=== PATIENT | male | born 1950 | race American Indian/Alaskan Native ===

== ENCOUNTER 2018-03-02 14:28 | Inpatient (IN) | payer MEDICARE ==
[2018-03-02 15:18] LABS: Basophils # (Auto) 0.1 K/mm3 (0.0-0.1); Basophils % (Auto) 0.9 % (0.0-1.8); Eosinophils % (Auto) 0.6 % (0.0-4.3); Hematocrit 36.5 % (35.5-45.6); Hemoglobin 12.3 gm/dl (11.8-15.2); Lymphocytes # (Auto) 1.7 K/mm3 (1.2-5.4); Lymphocytes % (Auto) 19.8 % (13.4-35.0); Mean Corpuscular HGB Conc 34 % (32-34); Mean Corpuscular Volume 80 fl (84-94); Monocytes # (Auto) 0.3 K/mm3 (0.0-0.8); Monocytes % (Auto) 3.5 % (0.0-7.3); Platelet Count 268 K/mm3 (140-440); Red Blood Count 4.59 M/mm3 (3.65-5.03); Red Cell Distribution Width 18.9 % (13.2-15.2)
--- NOTE | 2018-03-02 15:28 | XRay Report ---
FINAL REPORT EXAM: XR CHEST 1V AP HISTORY: Chest Pain TECHNIQUE: Chest, AP PRIORS: None. FINDINGS: There is mild cardiomegaly. Pulmonary vasculature is not congested. The lungs are clear. There are no pleural effusion seen. There is no evidence of pneumothorax. IMPRESSION: There is no acute abnormality identified.
[2018-03-02] MEDS ORDERED: SUBLIMAZE IV ONE ×3 (15:32→18:01)
[2018-03-02 15:33] LABS: Alanine Aminotransferase 15 units/L (7-56); Albumin 4.4 g/dL (3.9-5); BUN/Creatinine Ratio 13; Blood Urea Nitrogen 15 mg/dL (9-20); Calcium 9.9 mg/dL (8.4-10.2); Hemolysis Index 10
[2018-03-02] MEDS ORDERED: NACL 0.9% 250ML 250 ML IV ONE (15:33)
[2018-03-02] MEDS ORDERED: NITROSTAT SL PRN (15:33)
[2018-03-02] MEDS ORDERED: APRESOLINE IV ONE (15:34)
--- NOTE | 2018-03-02 15:34 | Emergency Department Report ---
ED General Adult HPI - General Chief complaint: Chest Pain Stated complaint: CHEST PAIN Time Seen by Provider: 03/02/18 15:13 Source: patient, EMS (ems notes not available at time of chart dictation), RN notes reviewed Mode of arrival: Stretcher Limitations: No Limitations - History of Present Illness Initial comments: This is a 67-year-old gentleman who is not known to this provider previously. He does not have a local primary care doctor. His past medical history includes diabetes, hypertension, stroke Presents to the ER with complaints of chest pain and weakness. Chest pain central, left-sided, radiates to the back into the "right kidney." This pain is present for 2 days. It is intermittent. It does not have exacerbating or relieving factors. It was preceded by nausea, vomiting and diarrhea. The patient denies headache, neck pain, has chronic shortness of breath, has no abdominal pain at this time, denies kidney pain at this time, and denies urinary symptoms. He denies hematemesis, bright red blood per rectum, and he denies D VT, pulmonary embolus risk factors. -: Gradual Location: chest Radiation: back, flank Consistency: intermittent Improves with: none Worsens with: none Associated Symptoms: chest pain, loss of appetite, malaise, nausea/vomiting, weakness. denies: confusion, cough, diaphoresis, fever/chills, headaches, rash, seizure, shortness of breath, syncope - Related Data Allergies Allergy/AdvReac Type Severity Reaction Status Date / Time No Known Allergies Allergy Unverified 03/02/18 15:06 ED Review of Systems ROS: Stated complaint: CHEST PAIN Other details as noted in HPI Constitutional: malaise. denies: fever Eyes: denies: eye discharge ENT: denies: epistaxis Respiratory: denies: cough Cardiovascular: chest pain Gastrointestinal: abdominal pain Genitourinary: denies: dysuria Musculoskeletal: back pain Skin: denies: lesions Neurological: weakness Psychiatric: anxiety ED Past Medical Hx - Past Medical History Previous Medical History?: Yes Hx Hypertension: Yes Hx CVA: Yes Hx Diabetes: Yes Hx Psychiatric Treatment: Yes (PTSD) - Social History Smoking Status: Former Smoker Substance Use Type: None ED Physical Exam - General Limitations: No Limitations General appearance: alert, in distress, obese - Head Head exam: Present: atraumatic, normocephalic - Eye Eye exam: Present: normal appearance, EOMI. Absent: nystagmus - ENT ENT exam: Present: normal exam, normal orophraynx, mucous membranes moist, normal external ear exam - Neck Neck exam: Present: normal inspection, full ROM. Absent: tenderness, meningismus - Respiratory Respiratory exam: Present: normal lung sounds bilaterally. Absent: respiratory distress - Cardiovascular Cardiovascular Exam: Present: regular rate, normal rhythm, normal heart sounds. Absent: bradycardia, tachycardia, irregular rhythm, systolic murmur, diastolic murmur, rubs, gallop - GI/Abdominal GI/Abdominal exam: Present: soft, other (superficial anterior abdominal wall ecchymosis noted, consistent with patient's history of self injecting abdominal wall insulin). Absent: distended, tenderness, guarding, rebound, rigid, pulsatile mass - Rectal Rectal exam: Present: deferred - Extremities Exam Extremities exam: Present: normal inspection, full ROM, pedal edema, other (2+ pulses noted in the bilateral upper, lower extremities. Compartments soft. No long bony tenderness. The pelvis is stable.). Absent: calf tenderness - Back Exam Back exam: Present: normal inspection, full ROM. Absent: tenderness, CVA tenderness (R), paraspinal tenderness, vertebral tenderness - Neurological Exam Neurological exam: Present: alert, other (Extraocular movements intact. Tongue midline. No facial droop. Facial sensation intact to light touch in the V1, V2, V3 distribution bilaterally. 5 and 5 strength in 4 extremities.. Sensation is intact to light touch in 4 extremities.). Absent: motor sensory deficit - Psychiatric Psychiatric exam: Present: anxious - Skin Skin exam: Present: warm, dry, intact, normal color. Absent: rash ED Course Vital Signs 03/02/18 03/02/18 03/02/18 14:35 14:46 15:00 Temperature Pulse Rate 84 80 77 Respiratory 16 10 L 11 L Rate Blood Pressure 177/111 177/111 173/104 O2 Sat by Pulse 100 100 Oximetry 03/02/18 03/02/18 03/02/18 15:01 15:15 15:30 Temperature 98.8 F Pulse Rate 77 77 75 Respiratory 13 10 L 9 L Rate Blood Pressure 177/111 186/104 186/118 O2 Sat by Pulse 99 99 99 Oximetry 03/02/18 03/02/18 03/02/18 15:45 15:56 15:57 Temperature Pulse Rate 78 92 H 88 Respiratory 11 L Rate Blood Pressure 189/117 189/117 189/117 O2 Sat by Pulse 100 Oximetry 03/02/18 03/02/18 03/02/18 16:00 16:16 16:30 Temperature Pulse Rate 85 85 86 Respiratory 10 L 12 20 Rate Blood Pressure 172/105 168/105 172/105 O2 Sat by Pulse 96 99 100 Oximetry 03/02/18 03/02/18 03/02/18 16:45 17:00 17:16 Temperature Pulse Rate 79 77 70 Respiratory 13 11 L 8 L Rate Blood Pressure 161/97 161/97 176/95 O2 Sat by Pulse 100 100 100 Oximetry 03/02/18 03/02/18 17:59 18:01 Temperature Pulse Rate 73 89 Respiratory 10 L 21 Rate Blood Pressure 143/84 143/84 O2 Sat by Pulse Oximetry - Reevaluation(s) Reevaluation #1: 03/02/18 16:18 Differential diagnosis, including but not limited to: GERD, gastritis, hiatal hernia, pancreatitis, acute coronary syndrome, pulmonary embolus, pneumonia, pneumothorax, aortic disease Assessment and plan: 67-year-old gentleman with chest pain that radiates with a number of vascular risk factors. Patient afebrile, with reassuring vital signs, with the exception of elevated blood pressure. His pain will be treated, elevated blood pressure will be treated, we will obtain screening laboratory studies, CT scan of the chest, abdomen, pelvis, and reassess. Clinically doubt aortic disease, given that patient has equal pulses in the upper, lower extremities, and an essentially unremarkable x-ray of the chest. 03/02/18 16:21 Reevaluation #2: 03/02/18 19:04 CT scan of the chest is negative. CT scan of the abdomen and pelvis is negative for acute disease. Patient is eating food. Hospital physician, Dr. Nicholson, has admitted the patient to the medical service for hypertensive urgency, blood pressure control, and cardiac risk stratification. - EJ/Peripheral Line Neck R Time Out Performed: Yes Indications: multiple IV sites needed Skin Cleansed in Sterile Fashion: Yes Size: 20 Dressing Placed: Tegaderm Patient Tolerated Procedure: well ED Medical Decision Making - Lab Data Result diagrams: 03/02/18 15:02 03/02/18 15:02 Vital Signs 01/02/0603/02/18 03/02/18 15:01 15:56 15:57 Temperature 98.8 F Pulse Rate 77 92 H 88 Respiratory 13 Rate Blood Pressure 177/111 189/117 189/117 O2 Sat by Pulse 99 Oximetry Lab Results 03/02/18 03/02/18 03/02/18 Range/Units 15:02 15:02 15:38 WBC 8.4 (4.5-11.0) K/mm3 RBC 4.59 (3.65-5.03) M/mm3 Hgb 12.3 (11.8-15.2) gm/dl Hct 36.5 (35.5-45.6) % MCV 80 L (84-94) fl MCH 27 L (28-32) pg MCHC 34 (32-34) % RDW 18.9 H (13.2-15.2) % Plt Count 268 (140-440) K/mm3 Lymph % (Auto) 19.8 (13.4-35.0) % [place] % (Auto) 3.5 (0.0-7.3) % Eos % (Auto) 0.6 (0.0-4.3) % Baso % (Auto) 0.9 (0.0-1.8) % Lymph # 1.7 (1.2-5.4) K/mm3 [place] # 0.3 (0.0-0.8) K/mm3 Eos # 0.0 (0.0-0.4) K/mm3 Baso # 0.1 (0.0-0.1) K/mm3 Seg Neutrophils % 75.2 H (40.0-70.0) % Seg Neutrophils # 6.3 (1.8-7.7) K/mm3 Sodium 142 (137-145) mmol/L Potassium 4.9 (3.6-5.0) mmol/L Chloride 103.1 (98-107) mmol/L Carbon Dioxide 24 (22-30) mmol/L Anion Gap 20 mmol/L BUN 15 (9-20) mg/dL Creatinine 1.2 (0.8-1.5) mg/dL Estimated GFR > 60 ml/min BUN/Creatinine Ratio 13 % Glucose 166 H (75-100) mg/dL Calcium 9.9 (8.4-10.2) mg/dL Total Bilirubin 0.30 (0.1-1.2) mg/dL AST 16 (5-40) units/L ALT 15 (7-56) units/L Alkaline Phosphatase 78 (35-129) units/L Troponin T < 0.010 (0.00-0.029) ng/mL Total Protein 7.4 (6.3-8.2) g/dL Albumin 4.4 (3.9-5) g/dL Albumin/Globulin Ratio 1.5 % Lipase 25 (13-60) units/L - EKG Data -: EKG Interpreted by Me EKG shows normal: sinus rhythm Rate: normal - EKG Data When compared to previous EKG there are: previous EKG unavailable 03/02/18 16:23 Sinus, 77 bpm, extreme right axis deviation, poor color progression, abnormal EKG, not consistent with ST elevation myocardial infarction. - Radiology Data Radiology results: report reviewed, image reviewed X-ray the chest is negative for acute disease, cardiomegaly is noted. Critical care attestation.: If time is entered above; I have spent that time in minutes in the direct care of this critically ill patient, excluding procedure time. ED Disposition Clinical Impression: Chest pain, Elevated blood pressure reading Disposition: OP ADMIT IP TO THIS HOSP Is pt being admited?: Yes Does the pt Need Aspirin: Yes Condition: Good Instructions: Chest Pain (ED) Referrals: PRIMARY CARE, [Primary Care Provider] - 3-5 Days
[2018-03-02 18:57] LABS: Bilirubin,Urine NEG (Negative); Blood,Urine NEG (Negative); Color,Urine Yellow (Yellow); Urobilinogen,Urine < 2.0 mg/dL (<2.0); WBC,Urine < 1.0 /HPF (0.0-6.0)
--- NOTE | 2018-03-02 19:00 | Cat Scan Report ---
FINAL REPORT EXAM: CT ANGIO CHEST HISTORY: cp htn TECHNIQUE: CT chest with intravenous contrast CT abdomen and pelvis with intravenous contrast PRIORS: None. FINDINGS: No evidence for mediastinal mass or pathologic lymph node enlargement. Heart great vessels appear unr emarkable. No central pulmonary embolus identified. No pulmonary infiltrate identified. No pleural fluid collection seen. Patient is status post cholecystectomy. Small amount of pneumobilia is likely a post cholecystectomy related finding. The spleen demonstrates normal size and attenuation. No pancreatic abnormalities seen. The kidneys demonstrate symmetric contrast enhancement. No evidence of hydronephrosis. At the upper pole left kidney there is a prominent cyst measuring 5.6 centimeters. At the lower pole there are 2 a djacent cysts measuring 8.2 x 4.5 centimeters in total. At the upper pole the right kidney there is a 1.7 centimeters cyst smaller adjacent hypodensity at th e cortex also likely is cystic. The adrenal glands are unremarkable Abdominal aorta is normal in caliber. There is an IVC filter present. There is a stent within the lef t common iliac vein. There is been a prior vertebroplasty at L1. Note is made of a bone island within the left pelvic iliac wing. No pathologically enlarged lymph nodes are identified. No signs of free fluid or free air No evidence of small bowel dilatation. Colon is nondistended. No pericolonic inflammatory change. Urinary bladder is unremarkable. IMPRESSION: IVC filter Stent in the left common iliac vein Bilateral renal cysts more prominent on the left Other incidental findings as noted above No acute abnormality identified
[2018-03-02] MEDS ORDERED: BABY ASPIRIN PO ONE (19:05)
--- NOTE | 2018-03-02 19:38 | History and Physical Report ---
History of Present Illness Chief complaint: Im hurting, and i just done feel good History of present illness: 67 YO Male with HTN, DM, CVA, PTSD presents to ED for evaluation. Pt states that he has experienced pain in his chest over the past 2 days with worsening symptoms over the same time frame. Pt states that pain is 6/10, localized to the left side of his chest, radiates to his back and into the right kidney, i ntermittent, not worsened with exertion, not relieved with rest, associated with nausea, and multiple episodes of vomiting. Pt denies fever, chills, palpitations, productive cough, BRBPR, skin rash, prolonged travel/immobility, unilateral leg swelling, calf pain, individual/family history of DVT/PE/Blood Clotting Disorders. EMS notified, and upon arrival the patient was found to bi in distress. Pt transported to [facility] for further care and evaluation. Pt seen and evaluated in ED and found to have symptoms consistent with ACS as well as Diastolic CHF. Pt admitted to telemetry. Cardiology consulted in ED. Past History Past Medical History: diabetes, hypertension, hyperlipidemia, other (PTSD) Past Surgical History: Other (IVC Filter, Left Iliac Stent) Social history: single Family history: hypertension Medications and Allergies Allergies Allergy/AdvReac Type Severity Reaction Status Date / Time No Known Allergies Allergy Unverified 03/02/18 15:06 Active Meds: Active Medications Nitroglycerin (Nitrostat) 0.4 mg SL .Q5MIN PRN PRN Reason: Chest Pain Last Admin: 03/02/18 15:56 Dose: 0.4 mg Documented by: Review of Systems Constitutional: no weight loss, no weight gain, no fever, no chills Ears, nose, mouth and throat: no ear pain, no ear discharge, no tinnitis, no decreased hearing, no nose pain Cardiovascular: chest pain, no orthopnea, no palpitations, no paroxysmal nocturnal dyspnea, no claudication, no phlebitis Respiratory: no cough, no cough with sputum, no excessive sputum, no hemoptysis Gastrointestinal: abdominal pain, nausea, vomiting, no diarrhea Genitourinary Male: no hematuria, no flank pain, no discharge Rectal: no pain, no incontinence, no bleeding Musculoskeletal: no neck stiffness, no neck pain, no shooting arm pain, no arm numbness/tingling, no low back pain Integumentary: no rash, no pruritis, no redness, no sores, no wounds Neurological: no paralysis, no weakness, no parathesias, no numbness, no tingling, no seizures Psychiatric: no anxiety, no memory loss, no change in sleep habits, no sleep disturbances, no insomnia, no hypersomnia, no change in appetite Endocrine: no cold intolerance, no heat intolerance, no polyphagia, no excessive thirst, no polyuria Hematologic/Lymphatic: no easy bruising, no easy bleeding, no lymphadenopathy, no lymphedema Allergic/Immunologic: no urticaria, no allergic rhinitis, no wheezing, no persistent infections, no anaphylaxis, no angioedema Exam - Constitutional Vitals: Temp Pulse Resp BP Pulse Ox 98.8 F 89 21 143/84 100 03/02/18 15:01 03/02/18 18:03/02/18 18:03/02/18 18:03/02/18 17:16 General appearance: Present: mild distress - EENT Eyes: Present: PERRL ENT: hearing intact, clear oral mucosa - Neck Neck: Present: supple, normal ROM - Respiratory Respiratory effort: normal Respiratory: bilateral: CTA - Cardiovascular Heart Sounds: Present: S1 & S2. Absent: rub, click - Extremities Extremities: pulses symmetrical, No edema Peripheral Pulses: within normal limits - Abdominal General gastrointestinal: Present: soft, non-tender, non-distended, normal bowel sounds Male genitourinary: Present: normal - Integumentary Integumentary: Present: clear, warm, dry - Musculoskeletal Musculoskeletal: gait normal, strength equal bilaterally - Psychiatric Psychiatric: appropriate mood/affect, intact judgment & insight - Neurologic Neurologic: CNII-XII intact, moves all extremities Results - Labs CBC & Chem 7: 03/02/18 15:02 03/02/18 15:02 Labs: Abnormal lab results 03/02/18 03/02/18 03/02/18 Range/Units 15:02 15:02 18:30 MCV 80 L (84-94) fl MCH 27 L (28-32) pg RDW 18.9 H (13.2-15.2) % Seg Neutrophils % 75.2 H (40.0-70.0) % Glucose 166 H (75-100) mg/dL Urine pH 8.0 H (5.0-7.0) Assessment and Plan - Patient Problems (1) ACS (acute coronary syndrome) Current Visit: Yes Status: Acute Plan to address problem: Admit to telemetry, serial cardiac enzymes, ekg, stress test, morphine, supplemental oxygen, nitro, aspirin, cardiology consulted in ED (2) Diastolic CHF Current Visit: Yes Status: Acute Qualifiers: Heart failure chronicity: acute Qualified Code(s): I50.31 - Acute diastolic (congestive) heart failure Plan to address problem: Admit to telemetry, echo, cardiology consulted in ED, afterload reduction, strict I/O, monitor uop q shift, daily weight, (3) HTN (hypertension) Current Visit: Yes Status: Acute Qualifiers: Hypertension type: essential hypertension Qualified Code(s): I10 - Essential (primary) hypertension Plan to address problem: Monitor bp q shift, supportive care. (4) HLD (hyperlipidemia) Current Visit: Yes Status: Acute Qualifiers: Hyperlipidemia type: mixed hyperlipidemia Qualified Code(s): E78.2 - Mixed hyperlipidemia Plan to address problem: Lipid panel, statin therapy as indicated, (5) Diabetes Current Visit: Yes Status: Acute Plan to address problem: ADA diet, insulin, accu check (6) DVT prophylaxis Current Visit: Yes Status: Acute Plan to address problem: SCD to BLE while in bed. (7) Headache Current Visit: Yes Status: Acute Plan to address problem: CT Head with out contrast,
[2018-03-02] MEDS ORDERED: TYLENOL PO PRN (19:39)
[2018-03-02] MEDS ORDERED: PROVENTIL IH PRN (19:39)
[2018-03-02] MEDS ORDERED: SODIUM CHLORIDE FLUSH SYRINGE 10 ML IV PRN ×2 (19:39)
[2018-03-02] MEDS ORDERED: ZESTRIL PO ONE (19:44)
[2018-03-02] MEDS: MORPHINE IV PRN ×2 (20:05→23:59)
[2018-03-02] MEDS: ZOFRAN IV PRN (20:05)
[2018-03-02 20:36] LABS: Chol/HDL Ratio 3.58 %
[2018-03-02] MEDS: SODIUM CHLORIDE FLUSH SYRINGE 10 ML IV SCH (22:52)
[2018-03-02] MEDS ORDERED: AMBIEN PO ONE (23:00)
[2018-03-03] MEDS: MORPHINE IV PRN ×3 (04:27→12:25)
[2018-03-03] MEDS: HCTZ PO SCH (09:56)
[2018-03-03] MEDS ORDERED: AFLURIA QUAD 2018-2019 SYRINGE IM ONE (10:00)
[2018-03-03] MEDS: SODIUM CHLORIDE FLUSH SYRINGE 10 ML IV SCH ×2 (10:00→22:02)
[2018-03-03] MEDS ORDERED: PNEUMOVAX 23 IM ONE (12:00)
--- NOTE | 2018-03-03 14:11 | Consultation ---
History of Present Illness Consult date: 03/03/18 Consult reason: other History of present illness: 67 YO Male with HTN, DM, CVA, PTSD presented to ED with epigastric and abdominal discomfort which radiates to his back. He reports associated nausea and vomiting but no dyspnea. Symptoms are exacerbated by eating. 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 He was also noted to have iliac stent in place on CT but has no knowledge of this stent. ECG revelas sinus bradycardia, left anterior fascicular block, poor R wave transition. Past History Past Medical History: diabetes, hypertension, hyperlipidemia, other (PTSD) Past Surgical History: Other (IVC Filter, Left Iliac Stent) Social history: single Family history: hypertension Medications and Allergies Allergies Allergy/AdvReac Type Severity Reaction Status Date / Time No Known Allergies Allergy Unverified 03/02/18 15:06 Home Medications Medication Instructions Recorded Confirmed Last Taken Type Amlodipine Besylate [Norvasc] 10 mg PO DAILY 03/02/18 03/02/18 Unknown History Aspirin [Aspir-Low] 81 mg PO DAILY 03/02/18 03/02/18 Unknown History Atorvastatin Calcium [Lipitor] 20 mg PO HS 03/02/18 03/02/18 Unknown History Buspirone HCl [busPIRone] 10 mg PO TID 03/02/18 03/02/18 Unknown History Cholecalciferol (Vitamin D3) 2,000 unit PO DAILY 03/02/18 03/02/18 Unknown History [Vitamin D3] Divalproex ER [DepaKOTE ER] 250 mg PO DAILY 03/02/18 03/02/18 Unknown History Duloxetine HCl [DULoxetine] 60 mg PO DAILY 03/02/18 03/02/18 Unknown History Famotidine [Pepcid] 20 mg PO BID 03/02/18 03/02/18 Unknown History Levothyroxine Sodium [Synthroid] 88 mcg PO DAILY 03/02/18 03/02/18 Unknown History Melatonin [Melatin] 9 mg PO HS 03/02/18 03/02/18 Unknown History Metformin HCl [Metformin HCl ER] 500 mg PO DAILY 03/02/18 03/02/18 Unknown History [place]-3/Dha/Epa/Fish Oil [[place] 3 1 each PO HS 03/02/18 03/02/18 Unknown History 500 Softgel] Ondansetron [Zofran TAB] 4 mg PO Q8HR PRN 03/02/18 03/02/18 Unknown History Pantoprazole Sodium 40 mg PO DAILY 03/02/18 03/02/18 Unknown History Rivaroxaban [Xarelto] 20 mg PO QDAY 03/02/18 03/02/18 Unknown History Zolpidem [Ambien] 10 mg PO QHS 03/03/18 03/03/18 03/02/18 23:45 History Active Meds: Active Medications Acetaminophen (Tylenol) 650 mg PO Q4H PRN PRN Reason: Pain MILD(1-3)/Fever >100.5/GIBBS Albuterol (Proventil) 2.5 mg IH Q4HRT PRN PRN Reason: Shortness Of Breath Hydrochlorothiazide (Hctz) 12.5 mg PO QDAY [facility] Last Admin: 03/03/18 09:56 Dose: 12.5 mg Documented by: Morphine Sulfate (Morphine) 2 mg IV Q4H PRN PRN Reason: Pain, Moderate (4-6) Last Admin: 03/03/18 12:25 Dose: 2 mg Documented by: Nitroglycerin (Nitrostat) 0.4 mg SL .Q5MIN PRN PRN Reason: Chest Pain Last Admin: 03/02/18 15:56 Dose: 0.4 mg Documented by: Ondansetron HCl (Zofran) 4 mg IV Q8H PRN PRN Reason: Nausea And Vomiting Last Admin: 03/02/18 20:05 Dose: 4 mg Documented by: Sodium Chloride (Sodium Chloride Flush Syringe 10 Ml) 10 ml IV BID [facility] Last Admin: 03/03/18 10:00 Dose: 10 ml Documented by: Sodium Chloride (Sodium Chloride Flush Syringe 10 Ml) 10 ml IV PRN PRN PRN Reason: LINE FLUSH Sodium Chloride (Sodium Chloride Flush Syringe 10 Ml) 10 ml IV PRN PRN PRN Reason: LINE FLUSH Review of Systems All systems: negative (per hpi) Physical Examination Vital Signs Pulse Resp BP 84 16 177/111 03/02/18 14:35 03/02/18 14:35 03/02/18 14:35 General appearance: no acute distress Neck: Positive: neck supple Cardiac: Positive: Reg Rate and Rhythm. Negative: Audible Murmur Lungs: Positive: clear to auscultation Abdomen: Positive: Soft, Active Bowel Sounds Extremities: Absent: edema Results 03/02/18 15:02 03/02/18 15:02 Cardiac Enzymes 03/02/18 Range/Units 15:02 AST 16 (5-40) units/L Lipids 03/02/18 Range/Units 19:57 Triglycerides 116 (2-149) mg/dL Cholesterol 122 (50-199) mg/dL HDL Cholesterol 34 L (40-59) mg/dL Cholesterol/HDL Ratio 3.58 % CBC 03/02/18 Range/Units 15:02 WBC 8.4 (4.5-11.0) K/mm3 RBC 4.59 (3.65-5.03) M/mm3 Hgb 12.3 (11.8-15.2) gm/dl Hct 36.5 (35.5-45.6) % Plt Count 268 (140-440) K/mm3 Lymph # 1.7 (1.2-5.4) K/mm3 [place] # 0.3 (0.0-0.8) K/mm3 Eos # 0.0 (0.0-0.4) K/mm3 Baso # 0.1 (0.0-0.1) K/mm3 Comprehensive Metabolic Panel 03/02/18 Range/Units 15:02 Sodium 142 (137-145) mmol/L Potassium 4.9 (3.6-5.0) mmol/L Chloride 103.1 (98-107) mmol/L Carbon Dioxide 24 (22-30) mmol/L BUN 15 (9-20) mg/dL Creatinine 1.2 (0.8-1.5) mg/dL Glucose 166 H (75-100) mg/dL Calcium 9.9 (8.4-10.2) mg/dL AST 16 (5-40) units/L ALT 15 (7-56) units/L Alkaline Phosphatase 78 (35-129) units/L Total Protein 7.4 (6.3-8.2) g/dL Albumin 4.4 (3.9-5) g/dL Assessment and Plan Abdominal pain, nausea, vomiting. Htn DM PE/DVT s/p IVC filter and anticoagulated with Xarelto PAD s/p iliac stent. Recommend: Check echocardiogram Continue ongoing evaluation for abdominal pathology.
[2018-03-03] MEDS ORDERED: NON-FORMULARY (Ondansetron [Zofran Tab] 4 MG) PO PRN (15:00)
--- NOTE | 2018-03-03 15:06 | Progress Note ---
Assessment and Plan Atypical chest pain - obtain 2d echo, consulted cardiology Abdominal pain, nausea, vomiting. 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 Subjective Date of service: 03/03/18 Interval history: patient seen and examined c/o abdominal pain with eating, also neck pain, feet and hand numbness b/l Per RN no episode of N/V, tolerating diet Objective - Exam Narrative Exam: General appearance: no acute distress Neck: Positive: neck supple Cardiac: Positive: Reg Rate and Rhythm. Negative: Audible Murmur Lungs: Positive: clear to auscultation Abdomen: Positive: Soft, Active Bowel Sounds Extremities: Absent: edema Neuro: no focal motor deficit Skin: no rash - Constitutional Vitals: Vital Signs - 12hr 03/03/18 03/03/18 03/03/18 04:27 04:57 08:28 Temperature 98.7 F 98.5 F Pulse Rate 75 76 Respiratory 18 20 12 Rate Blood Pressure 119/84 114/75 O2 Sat by Pulse 98 99 Oximetry 03/03/18 10:00 Temperature Pulse Rate 69 Respiratory Rate Blood Pressure O2 Sat by Pulse Oximetry - Labs CBC & Chem 7: 03/02/18 15:02 03/04/18 05:51 Labs: Abnormal lab results 03/02/18 03/02/18 03/02/18 Range/Units 15:02 15:02 18:30 MCV 80 L (84-94) fl MCH 27 L (28-32) pg RDW 18.9 H (13.2-15.2) % Seg Neutrophils % 75.2 H (40.0-70.0) % D-Dimer (0-234) ng/mlDDU Glucose 166 H (75-100) mg/dL POC Glucose (70-105) HDL Cholesterol (40-59) mg/dL Urine pH 8.0 H (5.0-7.0) 03/02/18 03/02/18 03/02/18 Range/Units 19:57 19:57 22:34 MCV (84-94) fl MCH (28-32) pg RDW (13.2-15.2) % Seg Neutrophils % (40.0-70.0) % D-Dimer 315.18 H (0-234) ng/mlDDU Glucose (75-100) mg/dL POC Glucose 110 H (70-105) HDL Cholesterol 34 L (40-59) mg/dL Urine pH (5.0-7.0) 03/03/18 03/03/18 Range/Units 05:55 10:53 MCV (84-94) fl MCH (28-32) pg RDW (13.2-15.2) % Seg Neutrophils % (40.0-70.0) % D-Dimer (0-234) ng/mlDDU Glucose (75-100) mg/dL POC Glucose 117 H 137 H (70-105) HDL Cholesterol (40-59) mg/dL Urine pH (5.0-7.0)
[2018-03-03] MEDS ORDERED: NON-FORMULARY (Duloxetine Hcl [Duloxetine] 60 MG) PO SCH (15:15)
[2018-03-03] MEDS: HumuLIN R SUB-Q SCH ×2 (15:44→22:02)
[2018-03-03] MEDS: PERCOCET 5/325 PO PRN ×3 (16:35→23:31)
[2018-03-03] MEDS: NORVASC PO SCH ×2 (16:35→17:31)
[2018-03-03] MEDS: XARELTO PO SCH ×2 (16:35→17:31)
[2018-03-03] MEDS: CYMBALTA PO SCH ×2 (16:36→17:31)
[2018-03-03] MEDS: HALFPRIN EC PO SCH ×2 (16:36→17:31)
[2018-03-03] MEDS: PROTONIX PO SCH (17:31)
[2018-03-03] MEDS ORDERED: APRESOLINE IV PRN (19:30)
[2018-03-03] MEDS ORDERED: BUSPIRONE HCL 10 MG PO SCH (20:00)
[2018-03-03] MEDS: BUSPAR PO SCH (20:34)
[2018-03-03] MEDS ORDERED: MELATONIN 9 MG PO SCH (22:00)
[2018-03-03] MEDS: AMBIEN PO SCH (22:02)
[2018-03-04] MEDS: PERCOCET 5/325 PO PRN ×4 (05:27→23:55)
[2018-03-04] MEDS: SYNTHROID PO SCH (05:31)
[2018-03-04] MEDS: HumuLIN R SUB-Q SCH ×4 (06:37→22:11)
[2018-03-04 06:39] LABS: BUN/Creatinine Ratio 13; Blood Urea Nitrogen 14 mg/dL (9-20); Calcium 9.2 mg/dL (8.4-10.2); Hemolysis Index 7
[2018-03-04] MEDS ORDERED: NON-FORMULARY (Cholecalciferol (Vitamin D3) [Vitamin D3] 2,000 UNIT) PO SCH (10:00)
--- NOTE | 2018-03-04 11:00 | Progress Note ---
Addendum entered and electronically signed by SONYA CERRATO MD 03/04/18 12:51: Patient has epigastric and generalized abdominal pain, associated with marked te nderness reproduces his pain. Echocardiogram shows left ventricle systolic ejection fraction 40%, with regional wall motion abnormalities suggestive of underlying coronary artery disease. We will treat coronary artery disease medically, and defer further workup and management of abdominal pain to internal medicine and gastroenterology. Original Note: Assessment and Plan Abdominal pain, nausea, vomiting Htn DM PE/DVT s/p IVC filter anticoagulated with Xarelto PAD s/p iliac stent Recommend: Echocardiogram done today, results are pending. Continue ongoing evaluation for abdominal pathology. Subjective Date of service: 03/04/18 Interval history: Patient reports continued right upper quadrant abdominal pain with nausea. Objective Vital Signs Temp Pulse Resp Resp BP Pulse Ox 03/04/18 08:22 98.6 F 80 18 148/81 98 03/04/18 06:27 18 03/04/18 05:27 18 03/04/18 05:23 98.5 F 87 20 148/90 98 03/04/18 00:31 18 03/03/18 23:53 20 03/03/18 23:31 20 03/03/18 22:56 98.0 F 87 18 141/78 96 03/03/18 22:12 68 165/93 03/03/18 22:00 97 03/03/18 20:45 20 96 03/03/18 19:48 71 03/03/18 19:29 98.5 F 71 18 164/90 96 03/03/18 15:26 98.4 F 70 14 173/91 99 03/03/18 11:50 98.3 F 77 14 146/88 98 - Physical Examination General: No Apparent Distress HEENT: Positive: PERRL Cardiac: Positive: Reg Rate and Rhythm Lungs: Positive: Decreased Breath Sounds Abdomen: Positive: Soft, Active Bowel Sounds Extremities: Absent: edema - Labs and Meds Comprehensive Metabolic Panel 03/04/18 Range/Units 05:51 Sodium 139 (137-145) mmol/L Potassium 3.6 D (3.6-5.0) mmol/L Chloride 103.7 (98-107) mmol/L Carbon Dioxide 23 (22-30) mmol/L BUN 14 (9-20) mg/dL Creatinine 1.1 (0.8-1.5) mg/dL Glucose 140 H (75-100) mg/dL Calcium 9.2 (8.4-10.2) mg/dL
[2018-03-04] MEDS: VITAMIN D3 PO SCH (11:57)
[2018-03-04] MEDS: XARELTO PO SCH (11:57)
[2018-03-04] MEDS: NORVASC PO SCH (11:58)
[2018-03-04] MEDS: HCTZ PO SCH (11:58)
[2018-03-04] MEDS: BUSPAR PO SCH ×3 (11:58→22:04)
[2018-03-04] MEDS: PROTONIX PO SCH (11:58)
[2018-03-04] MEDS: CYMBALTA PO SCH (11:58)
[2018-03-04] MEDS: SODIUM CHLORIDE FLUSH SYRINGE 10 ML IV SCH ×2 (12:02→22:11)
[2018-03-04] MEDS: HALFPRIN EC PO SCH (12:13)
--- NOTE | 2018-03-04 14:41 | Progress Note ---
Assessment and Plan Atypical chest pain, due to CAD - consulted cardiology - Echocardiogram showed ejection fraction 40%, with regional wall motion abnormalities suggestive of underlying coronary artery disease. Planned to treat coronary artery disease medically Abdominal pain, nausea, vomiting. - normal CT, tolerating diet -consult GI if symptom worsens - cont PPI for possible PUD Htn, cont home meds DM, cont SSI PE/DVT s/p IVC filter and anticoagulated with Xarelto PAD s/p iliac stent, cont aspirin/statin - ordered CTA abdomen to assess patency of the stent - pending on IV access Disposition: requesting SNF [facility], [facility] notified Brief history: 67 YO Male with HTN, DM, CVA, PTSD presented to ED with epigastric and abdominal discomfort which radiates to his back. CTA chest/ CT abdomen/pelvis: IVC filter, Stent in the left common iliac vein , Bilateral renal cysts more prominent on the left, No acute abnormality identified. Subjective Date of service: 03/04/18 Interval history: patient seen and examined cont to c/o abdominal pain with eating, also neck pain, feet and hand numbness b/l Per RN no episode of N/V, tolerating diet Objective - Exam Narrative Exam: General appearance: no acute distress Neck: Positive: neck supple Cardiac: Positive: Reg Rate and Rhythm. Negative: Audible Murmur Lungs: Positive: clear to auscultation Abdomen: Positive: Soft, Active Bowel Sounds Extremities: Absent: edema Neuro: no focal motor deficit Skin: no rash - Constitutional Vitals: Vital Signs - 12hr 03/04/18 03/04/18 03/04/18 05:23 05:27 06:27 Temperature 98.5 F Pulse Rate 87 Pulse Rate [ Apical] Respiratory 20 18 18 Rate Respiratory Rate [ Generalized] Blood Pressure 148/90 O2 Sat by Pulse 98 Oximetry 03/04/18 03/04/18 08:22 10:00 Temperature 98.6 F Pulse Rate 80 80 Pulse Rate [ 86 Apical] Respiratory 18 Rate Respiratory 20 Rate [ Generalized] Blood Pressure 148/81 O2 Sat by Pulse 98 Oximetry - Labs CBC & Chem 7: 03/02/18 15:02 03/04/18 05:51 Labs: Abnormal lab results 03/03/18 03/03/18 03/04/18 Range/Units 15:20 20:46 05:37 Glucose (75-100) mg/dL POC Glucose 135 H 147 H 135 H (70-105) 03/04/18 03/04/18 Range/Units 05:51 11:59 Glucose 140 H (75-100) mg/dL POC Glucose 142 H (70-105)
[2018-03-04] MEDS: LOPRESSOR PO SCH ×2 (15:08→22:10)
[2018-03-04] MEDS: AMBIEN PO SCH (22:04)
[2018-03-05] MEDS: LOPRESSOR PO SCH ×4 (03:32→21:54)
[2018-03-05] MEDS: SYNTHROID PO SCH (06:01)
[2018-03-05] MEDS: PERCOCET 5/325 PO PRN ×3 (06:02→17:58)
[2018-03-05] MEDS: NITRO DUR TD SCH (06:05)
[2018-03-05] MEDS: HumuLIN R SUB-Q SCH ×4 (09:27→21:43)
[2018-03-05] MEDS: BUSPAR PO SCH ×3 (09:28→21:41)
[2018-03-05] MEDS: NORVASC PO SCH (11:30)
[2018-03-05] MEDS: HALFPRIN EC PO SCH (11:30)
[2018-03-05] MEDS: CYMBALTA PO SCH (11:30)
[2018-03-05] MEDS: VITAMIN D3 PO SCH (11:30)
[2018-03-05] MEDS: PROTONIX PO SCH (11:30)
[2018-03-05] MEDS: HCTZ PO SCH (11:30)
[2018-03-05] MEDS: XARELTO PO SCH (11:30)
[2018-03-05] MEDS: SODIUM CHLORIDE FLUSH SYRINGE 10 ML IV SCH ×2 (11:31→21:41)
--- NOTE | 2018-03-05 11:31 | Cat Scan Report ---
CT ANGIOGRAM ABDOMEN AND PELVIS History: Abdominal pain. Technique: Helical CT and 1.25 mm intervals following IV contrast. Sagittal and coronal reformatted images. Rotational MIP images. Comparison: No relevant comparison. Findings: The abdominal aorta is normal caliber throughout with less than 20% stenosis. Moderate partially calcified plaques are noted in the distal aorta. No aneurysm or dissection. Moderate calcific plaques are identified in both common iliac arteries. There is less than 30% stenosis. The bilateral internal and external iliac arteries are patent with less than 20% stenosis. The celiac axis, SMA, ALVAREZ and bilateral single renal arteries are widely patent less than 20% stenosis. Mild fatty change is noted throughout the liver. There is trace pneumobilia in the left hepatic lobe. The gallbladder has been removed. The pancreas is normal. The spleen is normal size. A rounded enhancing lesion in the posterior spleen measures 2.6 cm which is incompletely characterized on this exam. This probably represents a splenic hemangioma. Scattered bilateral renal cysts are identified. The largest cyst measures 5 cm in the mid left kidney. The adrenal glands are normal. The bowel loops are within normal limits given no oral contrast was administered. The appendix is not confidently identified. Normal bladder. An IVC filter and left common iliac vein stent are in place. IMPRESSION: Mild atherosclerotic disease in the distal aorta and bilateral common iliac arteries but no hemodynamically significant stenosis is identified in the abdomen or pelvis. Fatty change in the liver. Probable splenic hemangioma. Bilateral renal cysts.
--- NOTE | 2018-03-05 12:01 | Consultation ---
History of Present Illness - Reason for Consult Consult date: 03/05/18 Reason for consult: Mental Health Evaluation Requesting physician: DARYA KRAUSE - Chief Complaint Chief complaint: "[facility]" - History of Present Psychiatric Illness 67 y.o. AA male who presented to the ER for chest pain and generalized weakness. Psychiatry was consulted to see the patient for PTSD. Today the patient is calm and cooperative during the assessment. He stated having a hx of PTSD/depression. He stated being a [place] and [facility]. He stated having nightmares about his experiences in [place]. He stated it can be difficult sleeping sometimes. He stated that he took Prazosin in the past that was effective. He stated that his current medical issues has caused him to be more "depressed" because he want to get better. He denies SI/HI's and AVH's. He denies recreational drug use and alcohol consumptions (etoh). Medications and Allergies Allergies Allergy/AdvReac Type Severity Reaction Status Date / Time No Known Allergies Allergy Unverified 03/02/18 15:06 Home Medications Medication Instructions Recorded Confirmed Last Taken Type Amlodipine Besylate [Norvasc] 10 mg PO DAILY 03/02/18 03/02/18 Unknown History Aspirin [Aspir-Low] 81 mg PO DAILY 03/02/18 03/02/18 Unknown History Atorvastatin Calcium [Lipitor] 20 mg PO HS 03/02/18 03/02/18 Unknown History Buspirone HCl [busPIRone] 10 mg PO TID 03/02/18 03/02/18 Unknown History Cholecalciferol (Vitamin D3) 2,000 unit PO DAILY 03/02/18 03/02/18 Unknown History [Vitamin D3] Divalproex ER [DepaKOTE ER] 250 mg PO DAILY 03/02/18 03/02/18 Unknown History Duloxetine HCl [DULoxetine] 60 mg PO DAILY 03/02/18 03/02/18 Unknown History Famotidine [Pepcid] 20 mg PO BID 03/02/18 03/02/18 Unknown History Levothyroxine Sodium [Synthroid] 88 mcg PO DAILY 03/02/18 03/02/18 Unknown History Melatonin [Melatin] 9 mg PO HS 03/02/18 03/02/18 Unknown History Metformin HCl [Metformin HCl ER] 500 mg PO DAILY 03/02/18 03/02/18 Unknown History [place]-3/Dha/Epa/Fish Oil [[place] 3 1 each PO HS 03/02/18 03/02/18 Unknown History 500 Softgel] Ondansetron [Zofran TAB] 4 mg PO Q8HR PRN 03/02/18 03/02/18 Unknown History Pantoprazole Sodium 40 mg PO DAILY 03/02/18 03/02/18 Unknown History Rivaroxaban [Xarelto] 20 mg PO QDAY 03/02/18 03/02/18 Unknown History Zolpidem [Ambien] 10 mg PO QHS 03/03/18 03/03/18 03/02/18 23:45 History Active Meds: Active Medications Acetaminophen (Tylenol) 650 mg PO Q4H PRN PRN Reason: Pain MILD(1-3)/Fever >100.5/GIBBS Last Admin: 03/04/18 22:11 Dose: 650 mg Documented by: Albuterol (Proventil) 2.5 mg IH Q4HRT PRN PRN Reason: Shortness Of Breath Amlodipine Besylate (Norvasc) 10 mg PO DAILY [facility] Last Admin: 03/05/18 11:30 Dose: 10 mg Documented by: Aspirin (Halfprin Ec) 81 mg PO DAILY [facility] Last Admin: 03/05/18 11:30 Dose: 81 mg Documented by: Atorvastatin Calcium (Lipitor) 20 mg PO [facility] Last Admin: 03/04/18 22:04 Dose: 20 mg Documented by: Buspirone HCl (Buspar) 10 mg PO TID [facility] Last Admin: 03/05/18 09:28 Dose: Not Given Documented by: Cholecalciferol (Vitamin D3) 2,000 unit PO QDAY [facility] Last Admin: 03/05/18 11:30 Dose: 2,000 unit Documented by: Divalproex Sodium (Depakote Er) 250 mg PO DAILY [facility] Last Admin: 03/05/18 11:30 Dose: 250 mg Documented by: Duloxetine HCl (Cymbalta) 60 mg PO QDAY [facility] Last Admin: 03/05/18 11:30 Dose: 60 mg Documented by: Hydralazine HCl (Apresoline) 10 mg IV Q4HR PRN PRN Reason: Hypertension Last Admin: 03/03/18 22:12 Dose: 10 mg Documented by: Hydrochlorothiazide (Hctz) 12.5 mg PO QDAY [facility] Last Admin: 03/05/18 11:30 Dose: 12.5 mg Documented by: Insulin Human Regular (Humulin R) 0 units SUB-Q ACHS [facility]; Protocol Last Admin: 03/05/18 09:27 Dose: Not Given Documented by: Levothyroxine Sodium (Synthroid) 88 mcg PO DAILY@0600 [facility] Last Admin: 03/05/18 06:01 Dose: 88 mcg Documented by: Metoprolol Tartrate (Lopressor) 25 mg PO Q6H [facility] Last Admin: 03/05/18 09:00 Dose: Not Given Documented by: Nitroglycerin (Nitrostat) 0.4 mg SL .Q5MIN PRN PRN Reason: Chest Pain Last Admin: 03/02/18 15:56 Dose: 0.4 mg Documented by: Nitroglycerin (Nitro Dur) 0.4 mg TD QDAY@0600 [facility] Last Admin: 03/05/18 06:05 Dose: Not Given Documented by: Ondansetron HCl (Zofran) 4 mg IV Q8H PRN PRN Reason: Nausea And Vomiting Last Admin: 03/02/18 20:05 Dose: 4 mg Documented by: Oxycodone/Acetaminophen (Percocet 5/325) 1 tab PO Q6H PRN PRN Reason: Pain, Moderate (4-6) Last Admin: 03/03/18 17:31 Dose: 1 tab Documented by: Oxycodone/Acetaminophen (Percocet 5/325) 2 tab PO Q6H PRN PRN Reason: Pain , Severe (7-10) Last Admin: 03/05/18 06:02 Dose: 2 tab Documented by: Pantoprazole Sodium (Protonix) 40 mg PO DAILY [facility] Last Admin: 03/05/18 11:30 Dose: 40 mg Documented by: Rivaroxaban (Xarelto) 20 mg PO QDAY [facility]; Protocol Last Admin: 03/05/18 11:30 Dose: 20 mg Documented by: Sodium Chloride (Sodium Chloride Flush Syringe 10 Ml) 10 ml IV BID [facility] Last Admin: 03/05/18 11:31 Dose: 10 ml Documented by: Sodium Chloride (Sodium Chloride Flush Syringe 10 Ml) 10 ml IV PRN PRN PRN Reason: LINE FLUSH Sodium Chloride (Sodium Chloride Flush Syringe 10 Ml) 10 ml IV PRN PRN PRN Reason: LINE FLUSH Zolpidem Tartrate (Ambien) 10 mg PO QHS [facility] Last Admin: 03/04/18 22:04 Dose: 10 mg Documented by: Past psychiatric history - Past Medical History Past Medical History: diabetes, hypertension, stroke Past Surgical History: No surgical history - past Psychiatric treatment and history psychiatric treatment history: Hx of PTSD/Depression. Denies a fam psy hx. - Social History Social history: lives with family Mental Status Exam - Vital signs Last Vital Signs Temp 98.1 F 03/05/18 07:46 Pulse 53 L 03/05/18 10:00 Resp 16 03/05/18 07:46 BP 152/89 03/05/18 07:46 Pulse Ox 97 03/05/18 07:46 - Exam Narrative exam: MSE: Appearance: calm, cooperative Behavior: regular eye contact Speech: regular rate and tone Mood: "okay" Affect: congruent to mood Thought Process: logical Thought Content: denies SI/HI's and AVH's Motor Activity: sitting up in bed Cognition: A/O x 3 Insight: appropriate Judgment: appropriate Results Result Diagrams: 03/02/18 15:02 03/04/18 05:51 Abnormal lab results 03/04/18 03/04/18 03/04/18 Range/Units 11:59 17:07 21:23 POC Glucose 142 H 132 H 141 H (70-105) 03/05/18 Range/Units 06:13 POC Glucose 123 H (70-105) All other labs normal. Assessment and Plan Assessment and plan: Impression: Hx of PTSD/Depression. Today the patient is calm and cooperative during the assessment. Recommendation/Plan: Continue home medications (Cymbalta, Depakote, and Buspar). Start Prazosin 1 mg PO HS for PTSd symptoms. Discussed possible suicidality/medication induced yvonne with the patient reference Cymbalta. Monitor the patient for hypotension. Will follow up with the patient in 24 hours. [facility] for [facility]. Dispo: [facility] for [facility]. Staffed with Dr Woodall.
--- NOTE | 2018-03-05 14:27 | Progress Note ---
Addendum entered and electronically signed by SONYA CERRATO MD 03/05/18 17:45: Patient presented with atypical, epigastric pain which he states radiates to his chest. A CT scan of the abdomen reported no acute findings. Echocardiogram demonstrated some regional wall motion abnormalities suggestive of underlying coronary disease. Recommendations: We'll proceed with a pharmacologic stress test with thallium for cardiac chest pain assessment. Original Note: Assessment and Plan Abdominal pain, nausea, vomiting Htn DM PE/DVT s/p IVC filter anticoagulated with Xarelto PAD s/p iliac stent Echocardiogram shows left ventricle systolic ejection fraction 40%, with regional wall motion abnormalities suggestive of underlying coronary artery disease. Recommend: Pre-discharge persantine thallium stress test for further cardiac evaluation. Continue medical therapy for underlying coronary artery disease. Subjective Date of service: 03/05/18 Interval history: Patient reports continued right upper quadrant abdominal pain with nausea, no vomiting. Objective Vital Signs Temp Pulse Pulse Resp Resp BP Pulse Ox 03/05/18 10:00 53 L 03/05/18 09:00 52 L 03/05/18 07:46 98.1 F 54 L 16 152/89 97 03/05/18 07:02 17 03/05/18 06:02 18 03/05/18 03:32 58 L 165/90 03/05/18 03:31 97.9 F 59 L 18 165/90 95 03/05/18 00:55 18 03/05/18 00:16 98.0 F 57 L 18 172/90 97 03/04/18 23:55 17 03/04/18 23:11 17 03/04/18 22:11 17 03/04/18 22:10 67 171/96 03/04/18 22:00 70 17 100 03/04/18 20:31 18 03/04/18 20:02 98.0 F 67 20 171/96 95 03/04/18 19:46 67 03/04/18 17:03 98.1 F 65 18 157/89 99 - Physical Examination General: No Apparent Distress HEENT: Positive: PERRL Neck: Positive: trachea midline Cardiac: Positive: Reg Rate and Rhythm Lungs: Positive: Decreased Breath Sounds Neuro: Positive: Grossly Intact Abdomen: Positive: Soft Extremities: Absent: edema
--- NOTE | 2018-03-05 18:46 | Progress Note ---
Assessment and Plan Assessment and plan: --h/o PTSD/anxiery abd depression -psych following, continue current medications --Atypical chest pain, due to CAD Cardiology evaluation and recommendations noted ECHO,EF 60%, regional wall motion abnormalities , possible underlying ischemia Possible stress test tomorrow --Abdominal pain, nausea, vomiting. Mild improvement CT abdomen and pelvis negative, tolerating diet cont PPI for possible PUD,GI evaluation is needed --Htn, cont home meds --DM, cont SSI --PE/DVT s/p IVC filter and anticoagulated with Xarelto --PAD s/p iliac stent, cont aspirin/statin ordered CTA abdomen to assess patency of the stent - pending on IV access Disposition: Possible SNF placement Plan of care is reviewed with the patient If stress test is negative and patient is stable and may be discharged tomorrow History Interval history: Patient seen and examined medical records reviewed Patient feels better, no new complaints CT abdomen and pelvis no acute abnormality noted Vital signs noted Hospitalist Physical - Constitutional Vitals: Temp Pulse Resp BP Pulse Ox 98.1 F 65 18 154/98 96 03/05/18 12:39 03/05/18 12:39 03/05/18 12:39 03/05/18 12:39 03/05/18 12:39 General appearance: Present: no acute distress, well-nourished - EENT Eyes: Present: PERRL, EOM intact - Neck Neck: Present: supple, normal ROM - Respiratory Respiratory effort: normal Respiratory: bilateral: diminished, negative: rales, rhonchi, wheezing - Cardiovascular Rhythm: regular Heart Sounds: Present: S1 & S2 - Extremities Extremities: no ischemia, No edema - Abdominal General gastrointestinal: soft, non-tender, non-distended, normal bowel sounds - Integumentary Integumentary: Present: clear, warm - Psychiatric Psychiatric: appropriate mood/affect, cooperative - Neurologic Neurologic: CNII-XII intact, moves all extremities Results - Labs CBC & Chem 7: 03/02/18 15:02 03/04/18 05:51 Labs: Laboratory Last Values WBC 8.4 K/mm3 (4.5-11.0) 03/02/18 15:02 RBC 4.59 M/mm3 (3.65-5.03) 03/02/18 15:02 Hgb 12.3 gm/dl (11.8-15.2) 03/02/18 15:02 Hct 36.5 % (35.5-45.6) 03/02/18 15:02 MCV 80 fl (84-94) L 03/02/18 15:02 MCH 27 pg (28-32) L 03/02/18 15:02 MCHC 34 % (32-34) 03/02/18 15:02 RDW 18.9 % (13.2-15.2) H 03/02/18 15:02 Plt Count 268 K/mm3 (140-440) 03/02/18 15:02 Lymph % (Auto) 19.8 % (13.4-35.0) 03/02/18 15:02 [place] % (Auto) 3.5 % (0.0-7.3) 03/02/18 15:02 Eos % (Auto) 0.6 % (0.0-4.3) 03/02/18 15:02 Baso % (Auto) 0.9 % (0.0-1.8) 03/02/18 15:02 Lymph # 1.7 K/mm3 (1.2-5.4) 03/02/18 15:02 [place] # 0.3 K/mm3 (0.0-0.8) 03/02/18 15:02 Eos # 0.0 K/mm3 (0.0-0.4) 03/02/18 15:02 Baso # 0.1 K/mm3 (0.0-0.1) 03/02/18 15:02 Seg Neutrophils % 75.2 % (40.0-70.0) H 03/02/18 15:02 Seg Neutrophils # 6.3 K/mm3 (1.8-7.7) 03/02/18 15:02 D-Dimer 315.18 ng/mlDDU (0-234) H 03/02/18 19:57 Sodium 139 mmol/L (137-145) 03/04/18 05:51 Potassium 3.6 mmol/L (3.6-5.0) D 03/04/18 05:51 Chloride 103.7 mmol/L (98-107) 03/04/18 05:51 Carbon Dioxide 23 mmol/L (22-30) 03/04/18 05:51 Anion Gap 16 mmol/L 03/04/18 05:51 BUN 14 mg/dL (9-20) 03/04/18 05:51 Creatinine 1.1 mg/dL (0.8-1.5) 03/04/18 05:51 Estimated GFR > 60 ml/min 03/04/18 05:51 BUN/Creatinine Ratio 13 % 03/04/18 05:51 Glucose 140 mg/dL (75-100) H 03/04/18 05:51 POC Glucose 149 (70-105) H 03/05/18 16:03 Calcium 9.2 mg/dL (8.4-10.2) 03/04/18 05:51 Total Bilirubin 0.30 mg/dL (0.1-1.2) 03/02/18 15:02 AST 16 units/L (5-40) 03/02/18 15:02 ALT 15 units/L (7-56) 03/02/18 15:02 Alkaline Phosphatase 78 units/L (35-129) 03/02/18 15:02 Troponin T < 0.010 ng/mL (0.00-0.029) 03/03/18 03:38 NT-Pro-B Natriuret Pep 207.7 pg/mL (0-900) 03/02/18 19:57 Total Protein 7.4 g/dL (6.3-8.2) 03/02/18 15:02 Albumin 4.4 g/dL (3.9-5) 03/02/18 15:02 Albumin/Globulin Ratio 1.5 % 03/02/18 15:02 Triglycerides 116 mg/dL (2-149) 03/02/18 19:57 Cholesterol 122 mg/dL (50-199) 03/02/18 19:57 LDL Cholesterol Direct 79 mg/dL (50-130) 03/02/18 19:57 HDL Cholesterol 34 mg/dL (40-59) L 03/02/18 19:57 Cholesterol/HDL Ratio 3.58 % 03/02/18 19:57 Amylase 51 units/L (27-131) 03/05/18 13:51 Lipase 26 units/L (13-60) 03/05/18 13:51 Urine Color Yellow (Yellow) 03/02/18 18:30 Urine Turbidity Clear (Clear) 03/02/18 18:30 Urine pH 8.0 (5.0-7.0) H 03/02/18 18:30 Ur Specific [place] 1.023 (1.003-1.030) 03/02/18 18:30 Urine Protein 100 mg/dl mg/dL (Negative) 03/02/18 18:30 Urine Glucose (UA) Neg mg/dL (Negative) 03/02/18 18:30 Urine Ketones Tr mg/dL (Negative) 03/02/18 18:30 Urine Blood Neg (Negative) 03/02/18 18: Urine Nitrite Neg (Negative) 03/02/18 18:30 Urine Bilirubin Neg (Negative) 03/02/18 18:30 Urine Urobilinogen < 2.0 mg/dL (<2.0) 03/02/18 18:30 Ur Leukocyte Esterase Neg (Negative) 03/02/18 18:30 Urine WBC (Auto) < 1.0 /HPF (0.0-6.0) 03/02/18 18:30 Urine RBC (Auto) 1.0 /HPF (0.0-6.0) 03/02/18 18:30
[2018-03-05] MEDS: AMBIEN PO SCH (21:41)
[2018-03-05] MEDS: MINIPRESS PO SCH (21:42)
[2018-03-06] MEDS: PERCOCET 5/325 PO PRN ×5 (00:24→18:06)
[2018-03-06] MEDS: LOPRESSOR PO SCH ×4 (06:14→22:13)
[2018-03-06] MEDS: NITRO DUR TD SCH (06:14)
[2018-03-06] MEDS: SYNTHROID PO SCH (06:15)
[2018-03-06] MEDS: HumuLIN R SUB-Q SCH ×4 (07:30→22:14)
[2018-03-06] MEDS: BUSPAR PO SCH ×3 (08:34→22:05)
--- NOTE | 2018-03-06 09:20 | Progress Note ---
Assessment and Plan Assessment and plan: --Atypical chest pain, due to CAD Cardiology evaluation and recommendations noted ECHO,EF 60%, regional wall motion abnormalities , possible underlying ischemia Possible stress test today --h/o PTSD/anxiery abd depression -psych following, continue current medications --Abdominal pain, nausea, vomiting. Mild improvement CT abdomen and pelvis negative, tolerating diet cont PPI for possible PUD,GI evaluation is needed --Htn, cont home meds --DM, cont SSI --PE/DVT s/p IVC filter and anticoagulated with Xarelto --PAD s/p iliac stent, cont aspirin/statin ordered CTA abdomen to assess patency of the stent - pending on IV access Disposition: Possible SNF placement Plan of care is reviewed with the patient If stress test is negative and patient is stable and may be discharged tomorrow Hospitalist Physical - Constitutional Vitals: Temp Pulse Resp BP Pulse Ox 97.3 F L 60 17 127/76 95 03/06/18 04:55 03/06/18 04:55 03/06/18 07:15 03/06/18 04:55 03/06/18 04:55 General appearance: Present: no acute distress, well-nourished - EENT Eyes: Present: PERRL, EOM intact - Neck Neck: Present: supple, normal ROM - Respiratory Respiratory effort: normal Respiratory: bilateral: diminished, negative: rales, rhonchi, wheezing - Cardiovascular Rhythm: regular Heart Sounds: Present: S1 & S2 - Extremities Extremities: no ischemia - Abdominal General gastrointestinal: soft, non-tender, non-distended, normal bowel sounds - Integumentary Integumentary: Present: clear, warm - Psychiatric Psychiatric: appropriate mood/affect, cooperative - Neurologic Neurologic: CNII-XII intact, moves all extremities Results - Labs CBC & Chem 7: 03/02/18 15:02 03/04/18 05:51 Labs: Laboratory Last Values WBC 8.4 K/mm3 (4.5-11.0) 03/02/18 15:02 RBC 4.59 M/mm3 (3.65-5.03) 03/02/18 15:02 Hgb 12.3 gm/dl (11.8-15.2) 03/02/18 15:02 Hct 36.5 % (35.5-45.6) 03/02/18 15:02 MCV 80 fl (84-94) L 03/02/18 15:02 MCH 27 pg (28-32) L 03/02/18 15:02 MCHC 34 % (32-34) 03/02/18 15:02 RDW 18.9 % (13.2-15.2) H 03/02/18 15:02 Plt Count 268 K/mm3 (140-440) 03/02/18 15:02 Lymph % (Auto) 19.8 % (13.4-35.0) 03/02/18 15:02 [place] % (Auto) 3.5 % (0.0-7.3) 03/02/18 15:02 Eos % (Auto) 0.6 % (0.0-4.3) 03/02/18 15:02 Baso % (Auto) 0.9 % (0.0-1.8) 03/02/18 15:02 Lymph # 1.7 K/mm3 (1.2-5.4) 03/02/18 15:02 [place] # 0.3 K/mm3 (0.0-0.8) 03/02/18 15:02 Eos # 0.0 K/mm3 (0.0-0.4) 03/02/18 15:02 Baso # 0.1 K/mm3 (0.0-0.1) 03/02/18 15:02 Seg Neutrophils % 75.2 % (40.0-70.0) H 03/02/18 15:02 Seg Neutrophils # 6.3 K/mm3 (1.8-7.7) 03/02/18 15:02 D-Dimer 315.18 ng/mlDDU (0-234) H 03/02/18 19:57 Sodium 139 mmol/L (137-145) 03/04/18 05:51 Potassium 3.6 mmol/L (3.6-5.0) D 03/04/18 05:51 Chloride 103.7 mmol/L (98-107) 03/04/18 05:51 Carbon Dioxide 23 mmol/L (22-30) 03/04/18 05:51 Anion Gap 16 mmol/L 03/04/18 05:51 BUN 14 mg/dL (9-20) 03/04/18 05:51 Creatinine 1.1 mg/dL (0.8-1.5) 03/04/18 05:51 Estimated GFR > 60 ml/min 03/04/18 05:51 BUN/Creatinine Ratio 13 % 03/04/18 05:51 Glucose 140 mg/dL (75-100) H 03/04/18 05:51 POC Glucose 219 (70-105) H 03/06/18 06:43 Calcium 9.2 mg/dL (8.4-10.2) 03/04/18 05:51 Total Bilirubin 0.30 mg/dL (0.1-1.2) 03/02/18 15:02 AST 16 units/L (5-40) 03/02/18 15:02 ALT 15 units/L (7-56) 03/02/18 15:02 Alkaline Phosphatase 78 units/L (35-129) 03/02/18 15:02 Troponin T < 0.010 ng/mL (0.00-0.029) 03/03/18 03:38 NT-Pro-B Natriuret Pep 207.7 pg/mL (0-900) 03/02/18 19:57 Total Protein 7.4 g/dL (6.3-8.2) 03/02/18 15:02 Albumin 4.4 g/dL (3.9-5) 03/02/18 15:02 Albumin/Globulin Ratio 1.5 % 03/02/18 15:02 Triglycerides 116 mg/dL (2-149) 03/02/18 19:57 Cholesterol 122 mg/dL (50-199) 03/02/18 19:57 LDL Cholesterol Direct 79 mg/dL (50-130) 03/02/18 19:57 HDL Cholesterol 34 mg/dL (40-59) L 03/02/18 19:57 Cholesterol/HDL Ratio 3.58 % 03/02/18 19:57 Amylase 51 units/L (27-131) 03/05/18 13:51 Lipase 26 units/L (13-60) 03/05/18 13:51 Urine Color Yellow (Yellow) 03/02/18 18:30 Urine Turbidity Clear (Clear) 03/02/18 18:30 Urine pH 8.0 (5.0-7.0) H 03/02/18 18:30 Ur Specific [place] 1.023 (1.003-1.030) 03/02/18 18:30 Urine Protein 100 mg/dl mg/dL (Negative) 03/02/18 18:30 Urine Glucose (UA) Neg mg/dL (Negative) 03/02/18 18: Urine Ketones Tr mg/dL (Negative) 03/02/18 18:30 Urine Blood Neg (Negative) 03/02/18 18:30 Urine Nitrite Neg (Negative) 03/02/18 18: Urine Bilirubin Neg (Negative) 03/02/18 18: Urine Urobilinogen < 2.0 mg/dL (<2.0) 03/02/18 18:30 Ur Leukocyte Esterase Neg (Negative) 03/02/18 18:30 Urine WBC (Auto) < 1.0 /HPF (0.0-6.0) 03/02/18 18:30 Urine RBC (Auto) 1.0 /HPF (0.0-6.0) 03/02/18 18:30
[2018-03-06] MEDS ORDERED: LEXISCAN IV ONE (09:49)
[2018-03-06] MEDS: ZOFRAN IV PRN (10:27)
[2018-03-06] MEDS ORDERED: ZOFRAN ONE (10:28)
[2018-03-06] MEDS: VITAMIN D3 PO SCH (11:40)
[2018-03-06] MEDS: HALFPRIN EC PO SCH (11:40)
[2018-03-06] MEDS: XARELTO PO SCH (11:40)
[2018-03-06] MEDS: CYMBALTA PO SCH (11:41)
[2018-03-06] MEDS: PROTONIX PO SCH (11:41)
[2018-03-06] MEDS: HCTZ PO SCH (11:42)
--- NOTE | 2018-03-06 12:18 | Progress Note ---
Assessment and Plan Abdominal pain, nausea, vomiting Htn DM PE/DVT s/p IVC filter anticoagulated with Xarelto PAD s/p iliac stent Echocardiogram shows left ventricle systolic ejection fraction 40%, with regional wall motion abnormalities suggestive of underlying coronary artery disease. MPI this admission showed no ischemia with a normal LVEF Recommend: No further cardiac work-up is needed Subjective Date of service: 03/06/18 Principal diagnosis: Chest Pain Interval history: Patient underwent a lexiscan stress test today without complications Objective Vital Signs Temp Pulse Pulse Resp Resp BP Pulse Ox 03/06/18 11:44 20 03/06/18 10:15 68 126/73 03/06/18 10:14 71 132/75 03/06/18 10:13 70 131/76 03/06/18 10:12 72 124/73 03/06/18 10:11 78 129/81 03/06/18 10:10 67 135/78 03/06/18 10:01 56 L 142/85 03/06/18 07:15 17 03/06/18 06:15 17 03/06/18 04:55 97.3 F L 60 17 127/76 95 03/06/18 01:24 18 03/06/18 00:24 18 03/06/18 00:13 98.5 F 69 17 113/73 96 03/05/18 22:00 70 18 95 03/05/18 21:54 67 161/94 03/05/18 21:42 67 161/94 03/05/18 20:26 18 03/05/18 20:12 98.0 F 67 17 161/94 96 03/05/18 18:58 18 03/05/18 16:02 98.0 F 63 18 153/93 96 03/05/18 12:39 98.1 F 65 18 154/98 96 - Physical Examination General: No Apparent Distress HEENT: Positive: PERRL Neck: Positive: trachea midline Cardiac: Positive: Reg Rate and Rhythm Lungs: Positive: Normal Exam Neuro: Positive: Grossly Intact Abdomen: Positive: Soft Extremities: Absent: edema
[2018-03-06] MEDS: NORVASC PO SCH (16:28)
[2018-03-06] MEDS: SODIUM CHLORIDE FLUSH SYRINGE 10 ML IV SCH ×2 (16:29→22:14)
--- NOTE | 2018-03-06 20:25 | Treadmill Report ---
INDICATION: Chest pain. ORDERING PHYSICIAN: Ching Verdugo MD FINDINGS: There is no scintigraphic evidence of myocardial ischemia. The left ventricle is normal in size and function. The left ventricular ejection fraction is measured at 64%. There is normal wall motion and wall thickening on gated imaging. CONCLUSION: Normal perfusion scan. JOB# [id number] LILLIE/AKI
[2018-03-06] MEDS: MINIPRESS PO SCH (22:13)
[2018-03-06] MEDS: AMBIEN PO SCH (22:15)
[2018-03-07] MEDS: LOPRESSOR PO SCH ×4 (06:16→22:15)
[2018-03-07] MEDS: SYNTHROID PO SCH (06:16)
[2018-03-07] MEDS: PERCOCET 5/325 PO PRN ×4 (06:16→18:41)
[2018-03-07] MEDS: NITRO DUR TD SCH (06:48)
--- NOTE | 2018-03-07 11:03 | Progress Note ---
Subjective - Reason for Consult Consult date: 03/07/18 Reason for consult: Psychiatry Follow-up - Chief Complaint Chief complaint: "I am depressed" 67 y.o. AA male who presented to the ER for chest pain and generalized weakness. Psychiatry was consulted to see the patient for PTSD. Today the patient is calm and cooperative, but withdrawn during the assessment. He stated that he isn't feeling well "mentally." He stated that he want to kill himself, but denies a suicide plan when asked. He acknowledged a previous suicide attempt by overdosing on Zoloft a year ago. He denies HI's and AVHs'. He denies any side effects of his medications. He denies having nightmares last night. Mental Status Exam - Vital signs Last Vital Signs Temp 97.8 F 03/07/18 09:12 Pulse 59 L 03/07/18 09:12 Resp 16 03/07/18 09:12 BP 108/57 03/07/18 09:12 Pulse Ox 96 03/07/18 09:12 - Exam Narrative exam: MSE: Appearance: calm, cooperative Behavior: regular eye contact Speech: regular rate and tone Mood: "depressed." withdrawn Affect: flat Thought Process: logical Thought Content: denies HI's and AVH's Motor Activity: sitting up in bed Cognition: A/O x 3 Insight: vague Judgment:poor Assessment and Plan Impression: Hx of PTSD/Depression. Today the patient is calm and cooperative during the assessment. The patient endorses SI's. Recommendation/Plan: Initiate 1013 and continue home medications (Cymbalta, Depakote, and Buspar). Also, continue Prazosin 1 mg PO HS for PTSD symptoms. Discussed possible suicidality/medication induced yvonne with the patient reference Cymbalta. Monitor the patient for hypotension. Will follow up with the patient in 24 hours. [facility] ordered for the AM. Dispo: The patient will be assessed daily to determine proper dispo once medically clear. Will staff with Dr Woodall.
[2018-03-07] MEDS: XARELTO PO SCH (11:55)
[2018-03-07] MEDS: PROTONIX PO SCH (11:55)
[2018-03-07] MEDS: NORVASC PO SCH (11:55)
[2018-03-07] MEDS: VITAMIN D3 PO SCH (11:56)
[2018-03-07] MEDS: CYMBALTA PO SCH (11:57)
[2018-03-07] MEDS: SODIUM CHLORIDE FLUSH SYRINGE 10 ML IV SCH ×2 (12:00→22:16)
[2018-03-07] MEDS: BUSPAR PO SCH ×3 (12:01→22:14)
[2018-03-07] MEDS: HumuLIN R SUB-Q SCH ×4 (12:02→22:30)
[2018-03-07] MEDS: HCTZ PO SCH (12:03)
--- NOTE | 2018-03-07 12:05 | Progress Note ---
Addendum entered and electronically signed by SONYA CERRATO MD 03/07/18 17:04: Conservative cardiac medical therapy. Original Note: Assessment and Plan Abdominal pain, nausea, vomiting Htn DM PE/DVT s/p IVC filter anticoagulated with Xarelto PAD s/p iliac stent Echocardiogram shows left ventricle systolic ejection fraction 40%, with regional wall motion abnormalities suggestive of underlying coronary artery disease. No ischemia by MPI this admission Conservative cardiac management. Subjective Date of service: 03/07/18 Principal diagnosis: Chest Pain Interval history: Patient reports continued right upper quadrant abdominal pain with nausea, no vomiting. Objective Vital Signs Temp Pulse Resp Resp BP Pulse Ox 03/07/18 09:12 97.8 F 59 L 16 108/57 96 03/07/18 07:15 17 03/07/18 06:16 18 03/07/18 05:19 98.3 F 55 L 17 112/63 93 03/07/18 01:00 18 03/07/18 00:07 97.6 F 61 17 110/56 95 03/07/18 00:00 18 03/06/18 22:13 63 139/71 03/06/18 22:12 98.0 F 66 17 139/71 97 03/06/18 22:00 17 03/06/18 21:20 97 03/06/18 20:31 18 03/06/18 20:26 61 03/06/18 19:05 18 03/06/18 18:05 20 03/06/18 17:55 97 03/06/18 16:52 98.4 F 74 16 126/80 95 03/06/18 16:28 70 136/74 03/06/18 13:00 64 20 20 03/06/18 12:44 20 03/06/18 12:38 98.0 F 16 03/06/18 12:35 59 L 126/78 96 - Physical Examination General: No Apparent Distress HEENT: Positive: PERRL Neck: Positive: trachea midline Cardiac: Positive: Reg Rate and Rhythm Lungs: Positive: Decreased Breath Sounds Neuro: Positive: Grossly Intact Abdomen: Positive: Soft Extremities: Absent: edema
[2018-03-07] MEDS: HALFPRIN EC PO SCH (12:07)
--- NOTE | 2018-03-07 17:47 | Progress Note ---
Assessment and Plan Assessment and plan: --Depression; suicidal thoughts and ideation Psych is already on the case, placed on suicide watch 1013 status Closely monitor --Atypical chest pain, due to CAD Cardiology evaluation and recommendations noted ECHO,EF 60%, regional wall motion abnormalities , possible underlying ischemia Stress test negative for reversible ischemia --h/o PTSD/anxiery abd depression -psych following, continue current medications --Abdominal pain, nausea, vomiting. Mild improvement CT abdomen and pelvis negative, tolerating diet cont PPI for possible PUD,GI evaluation is needed --Htn, cont home meds --DM, cont SSI --PE/DVT s/p IVC filter and anticoagulated with Xarelto --PAD s/p iliac stent, cont aspirin/statin ordered CTA abdomen to assess patency of the stent - pending on IV access Disposition: Possible SNF placement Plan of care is reviewed with the patient Psychiatric evaluation and recommendations noted Continue 3 status History Interval history: Sincerely and examined medical records reviewed Patient feels better slightly depressed, stress test negative Denies chest pain or shortness of breath Alert awake oriented 3 Vital signs noted Hospitalist Physical - Constitutional Vitals: Temp Pulse Resp BP Pulse Ox 97.9 F 59 L 18 105/51 97 03/07/18 16:36 03/07/18 16:43 03/07/18 16:36 03/07/18 16:36 03/07/18 16:36 General appearance: Present: no acute distress, well-nourished - EENT Eyes: Present: PERRL, EOM intact - Neck Neck: Present: supple, normal ROM - Respiratory Respiratory effort: normal Respiratory: bilateral: diminished, negative: rales, rhonchi, wheezing - Cardiovascular Rhythm: regular Heart Sounds: Present: S1 & S2 - Extremities Extremities: no ischemia, No edema - Abdominal General gastrointestinal: soft, non-tender, non-distended, normal bowel sounds - Integumentary Integumentary: Present: clear, warm - Psychiatric Psychiatric: appropriate mood/affect, cooperative - Neurologic Neurologic: CNII-XII intact, moves all extremities Results - Labs CBC & Chem 7: 03/02/18 15:02 03/04/18 05:51 Labs: Laboratory Last Values WBC 8.4 K/mm3 (4.5-11.0) 03/02/18 15:02 RBC 4.59 M/mm3 (3.65-5.03) 03/02/18 15:02 Hgb 12.3 gm/dl (11.8-15.2) 03/02/18 15:02 Hct 36.5 % (35.5-45.6) 03/02/18 15:02 MCV 80 fl (84-94) L 03/02/18 15:02 MCH 27 pg (28-32) L 03/02/18 15:02 MCHC 34 % (32-34) 03/02/18 15:02 RDW 18.9 % (13.2-15.2) H 03/02/18 15:02 Plt Count 268 K/mm3 (140-440) 03/02/18 15:02 Lymph % (Auto) 19.8 % (13.4-35.0) 03/02/18 15:02 [place] % (Auto) 3.5 % (0.0-7.3) 03/02/18 15:02 Eos % (Auto) 0.6 % (0.0-4.3) 03/02/18 15:02 Baso % (Auto) 0.9 % (0.0-1.8) 03/02/18 15:02 Lymph # 1.7 K/mm3 (1.2-5.4) 03/02/18 15:02 [place] # 0.3 K/mm3 (0.0-0.8) 03/02/18 15:02 Eos # 0.0 K/mm3 (0.0-0.4) 03/02/18 15:02 Baso # 0.1 K/mm3 (0.0-0.1) 03/02/18 15:02 Seg Neutrophils % 75.2 % (40.0-70.0) H 03/02/18 15:02 Seg Neutrophils # 6.3 K/mm3 (1.8-7.7) 03/02/18 15:02 D-Dimer 315.18 ng/mlDDU (0-234) H 03/02/18 19:57 Sodium 139 mmol/L (137-145) 03/04/18 05:51 Potassium 3.6 mmol/L (3.6-5.0) D 03/04/18 05:51 Chloride 103.7 mmol/L (98-107) 03/04/18 05:51 Carbon Dioxide 23 mmol/L (22-30) 03/04/18 05:51 Anion Gap 16 mmol/L 03/04/18 05:51 BUN 14 mg/dL (9-20) 03/04/18 05:51 Creatinine 1.1 mg/dL (0.8-1.5) 03/04/18 05:51 Estimated GFR > 60 ml/min 03/04/18 05:51 BUN/Creatinine Ratio 13 % 03/04/18 05:51 Glucose 140 mg/dL (75-100) H 03/04/18 05:51 POC Glucose 167 (70-105) H 03/07/18 14:07 Calcium 9.2 mg/dL (8.4-10.2) 03/04/18 05:51 Total Bilirubin 0.30 mg/dL (0.1-1.2) 03/02/18 15:02 AST 16 units/L (5-40) 03/02/18 15:02 ALT 15 units/L (7-56) 03/02/18 15:02 Alkaline Phosphatase 78 units/L (35-129) 03/02/18 15:02 Troponin T < 0.010 ng/mL (0.00-0.029) 03/03/18 03:38 NT-Pro-B Natriuret Pep 207.7 pg/mL (0-900) 03/02/18 19:57 Total Protein 7.4 g/dL (6.3-8.2) 03/02/18 15:02 Albumin 4.4 g/dL (3.9-5) 03/02/18 15:02 Albumin/Globulin Ratio 1.5 % 03/02/18 15:02 Triglycerides 116 mg/dL (2-149) 03/02/18 19:57 Cholesterol 122 mg/dL (50-199) 03/02/18 19:57 LDL Cholesterol Direct 79 mg/dL (50-130) 03/02/18 19:57 HDL Cholesterol 34 mg/dL (40-59) L 03/02/18 19:57 Cholesterol/HDL Ratio 3.58 % 03/02/18 19:57 Amylase 51 units/L (27-131) 03/05/18 13:51 Lipase 26 units/L (13-60) 03/05/18 13:51 Urine Color Yellow (Yellow) 03/02/18 18:30 Urine Turbidity Clear (Clear) 03/02/18 18:30 Urine pH 8.0 (5.0-7.0) H 03/02/18 18:30 Ur Specific [place] 1.023 (1.003-1.030) 03/02/18 18:30 Urine Protein 100 mg/dl mg/dL (Negative) 03/02/18 18:30 Urine Glucose (UA) Neg mg/dL (Negative) 03/02/18 18: Urine Ketones Tr mg/dL (Negative) 03/02/18 18:30 Urine Blood Neg (Negative) 03/02/18 18:30 Urine Nitrite Neg (Negative) 03/02/18 18:30 Urine Bilirubin Neg (Negative) 03/02/18 18:30 Urine Urobilinogen < 2.0 mg/dL (<2.0) 03/02/18 18:30 Ur Leukocyte Esterase Neg (Negative) 03/02/18 18:30 Urine WBC (Auto) < 1.0 /HPF (0.0-6.0) 03/02/18 18:30 Urine RBC (Auto) 1.0 /HPF (0.0-6.0) 03/02/18 18:30 Valproic Acid 16.1 ug/mL (50-100) L 03/06/18 19:56
[2018-03-07] MEDS: MINIPRESS PO SCH (22:15)
[2018-03-07] MEDS: AMBIEN PO SCH (22:16)
[2018-03-08] MEDS: LOPRESSOR PO SCH ×4 (03:09→21:44)
[2018-03-08] MEDS: SYNTHROID PO SCH (05:53)
[2018-03-08] MEDS: PERCOCET 5/325 PO PRN ×3 (06:01→21:41)
--- NOTE | 2018-03-08 08:20 | Progress Note ---
Assessment and Plan Assessment and plan: --Depression; suicidal thoughts and ideation Psych is already on the case, placed on suicide watch 1013 status Closely monitor --Atypical chest pain, due to CAD Cardiology evaluation and recommendations noted ECHO,EF 60%, regional wall motion abnormalities , possible underlying ischemia Stress test negative for reversible ischemia --h/o PTSD/anxiery abd depression -psych following, continue current medications --Abdominal pain, nausea, vomiting. Mild improvement CT abdomen and pelvis negative, tolerating diet cont PPI for possible PUD,GI evaluation is needed --Htn, cont home meds --DM, cont SSI --PE/DVT s/p IVC filter and anticoagulated with Xarelto --PAD s/p iliac stent, cont aspirin/statin ordered CTA abdomen to assess patency of the stent - pending on IV access Continue 1013 status Medically stable for discharge and transferred to inpatient psych facility History Interval history: Since seen and examined medical records reviewed Complaints of depression and suicidal ideation Patient is medically stable for discharge Psych planning inpatient psych transfer Patient's alert and awake Not in acute distress, vital signs reviewed Hospitalist Physical - Constitutional Vitals: Temp Pulse Resp BP Pulse Ox 98.4 F 68 18 130/65 93 03/08/18 07:19 03/08/18 07:18 03/08/18 07:18 03/08/18 07:18 03/08/18 07:18 General appearance: Present: no acute distress, well-nourished - EENT Eyes: Present: PERRL, EOM intact - Neck Neck: Present: supple, normal ROM - Respiratory Respiratory effort: normal Respiratory: bilateral: diminished, negative: rales, rhonchi, wheezing - Cardiovascular Rhythm: regular Heart Sounds: Present: S1 & S2 - Extremities Extremities: no ischemia, No edema - Abdominal General gastrointestinal: soft, non-tender, non-distended, normal bowel sounds - Integumentary Integumentary: Present: clear, warm - Psychiatric Psychiatric: appropriate mood/affect, cooperative - Neurologic Neurologic: CNII-XII intact, moves all extremities Results - Labs CBC & Chem 7: 03/02/18 15:02 03/04/18 05:51 Labs: Laboratory Last Values WBC 8.4 K/mm3 (4.5-11.0) 03/02/18 15:02 RBC 4.59 M/mm3 (3.65-5.03) 03/02/18 15:02 Hgb 12.3 gm/dl (11.8-15.2) 03/02/18 15:02 Hct 36.5 % (35.5-45.6) 03/02/18 15:02 MCV 80 fl (84-94) L 03/02/18 15:02 MCH 27 pg (28-32) L 03/02/18 15:02 MCHC 34 % (32-34) 03/02/18 15:02 RDW 18.9 % (13.2-15.2) H 03/02/18 15:02 Plt Count 268 K/mm3 (140-440) 03/02/18 15:02 Lymph % (Auto) 19.8 % (13.4-35.0) 03/02/18 15:02 [place] % (Auto) 3.5 % (0.0-7.3) 03/02/18 15:02 Eos % (Auto) 0.6 % (0.0-4.3) 03/02/18 15:02 Baso % (Auto) 0.9 % (0.0-1.8) 03/02/18 15:02 Lymph # 1.7 K/mm3 (1.2-5.4) 03/02/18 15:02 [place] # 0.3 K/mm3 (0.0-0.8) 03/02/18 15:02 Eos # 0.0 K/mm3 (0.0-0.4) 03/02/18 15:02 Baso # 0.1 K/mm3 (0.0-0.1) 03/02/18 15:02 Seg Neutrophils % 75.2 % (40.0-70.0) H 03/02/18 15:02 Seg Neutrophils # 6.3 K/mm3 (1.8-7.7) 03/02/18 15:02 D-Dimer 315.18 ng/mlDDU (0-234) H 03/02/18 19:57 Sodium 139 mmol/L (137-145) 03/04/18 05:51 Potassium 3.6 mmol/L (3.6-5.0) D 03/04/18 05:51 Chloride 103.7 mmol/L (98-107) 03/04/18 05:51 Carbon Dioxide 23 mmol/L (22-30) 03/04/18 05:51 Anion Gap 16 mmol/L 03/04/18 05:51 BUN 14 mg/dL (9-20) 03/04/18 05:51 Creatinine 1.1 mg/dL (0.8-1.5) 03/04/18 05:51 Estimated GFR > 60 ml/min 03/04/18 05:51 BUN/Creatinine Ratio 13 % 03/04/18 05:51 Glucose 140 mg/dL (75-100) H 03/04/18 05:51 POC Glucose 185 (70-105) H 03/07/18 22:28 Calcium 9.2 mg/dL (8.4-10.2) 03/04/18 05:51 Total Bilirubin 0.30 mg/dL (0.1-1.2) 03/02/18 15:02 AST 16 units/L (5-40) 03/02/18 15:02 ALT 15 units/L (7-56) 03/02/18 15:02 Alkaline Phosphatase 78 units/L (35-129) 03/02/18 15:02 Troponin T < 0.010 ng/mL (0.00-0.029) 03/03/18 03:38 NT-Pro-B Natriuret Pep 207.7 pg/mL (0-900) 03/02/18 19:57 Total Protein 7.4 g/dL (6.3-8.2) 03/02/18 15:02 Albumin 4.4 g/dL (3.9-5) 03/02/18 15:02 Albumin/Globulin Ratio 1.5 % 03/02/18 15:02 Triglycerides 116 mg/dL (2-149) 03/02/18 19:57 Cholesterol 122 mg/dL (50-199) 03/02/18 19:57 LDL Cholesterol Direct 79 mg/dL (50-130) 03/02/18 19:57 HDL Cholesterol 34 mg/dL (40-59) L 03/02/18 19:57 Cholesterol/HDL Ratio 3.58 % 03/02/18 19:57 Amylase 51 units/L (27-131) 03/05/18 13:51 Lipase 26 units/L (13-60) 03/05/18 13:51 Urine Color Yellow (Yellow) 03/02/18 18:30 Urine Turbidity Clear (Clear) 03/02/18 18:30 Urine pH 8.0 (5.0-7.0) H 03/02/18 18:30 Ur Specific [place] 1.023 (1.003-1.030) 03/02/18 18:30 Urine Protein 100 mg/dl mg/dL (Negative) 03/02/18 18:30 Urine Glucose (UA) Neg mg/dL (Negative) 03/02/18 18:30 Urine Ketones Tr mg/dL (Negative) 03/02/18 18:30 Urine Blood Neg (Negative) 03/02/18 18:30 Urine Nitrite Neg (Negative) 03/02/18 18:30 Urine Bilirubin Neg (Negative) 03/02/18 18:30 Urine Urobilinogen < 2.0 mg/dL (<2.0) 03/02/18 18:30 Ur Leukocyte Esterase Neg (Negative) 03/02/18 18:30 Urine WBC (Auto) < 1.0 /HPF (0.0-6.0) 03/02/18 18:30 Urine RBC (Auto) 1.0 /HPF (0.0-6.0) 03/02/18 18:30 Valproic Acid 16.1 ug/mL (50-100) L 03/06/18 19:56
--- NOTE | 2018-03-08 10:05 | Progress Note ---
Addendum entered and electronically signed by SONYA CERRATO MD 03/08/18 11:05: Medical therapy and risk factor modification for coronary disease and peripheral arterial disease. Original Note: Assessment and Plan Abdominal pain, nausea, vomiting Htn DM PE/DVT s/p IVC filter anticoagulated with Xarelto PAD s/p iliac stent Echocardiogram shows left ventricle systolic ejection fraction 40%, with regional wall motion abnormalities suggestive of underlying coronary artery disease. No ischemia by MPI this admission No further cardiac workup indicated. Conservative cardiac management. We will follow intermittently. Subjective Date of service: 03/08/18 Principal diagnosis: Chest Pain Interval history: Patient has no cardiac complaints. Sitter is at bedside. Objective Vital Signs Temp Pulse Resp Resp BP BP Pulse Ox 03/08/18 07:19 98.4 F 03/08/18 07:18 68 18 130/65 93 03/08/18 05:36 98.2 F 64 18 156/82 99 03/08/18 03:09 59 L 132/86 03/07/18 22:15 56 L 03/07/18 22:00 18 03/07/18 20:06 98.0 F 56 L 18 137/74 95 03/07/18 19:41 18 03/07/18 16:43 59 L 03/07/18 16:36 97.9 F 64 18 105/51 97 03/07/18 14:30 97.8 F 62 16 120/63 97 - Physical Examination General: No Apparent Distress HEENT: Positive: PERRL Neck: Positive: trachea midline Cardiac: Positive: Reg Rate and Rhythm Lungs: Positive: Decreased Breath Sounds Neuro: Positive: Grossly Intact Abdomen: Positive: Soft Extremities: Absent: edema
[2018-03-08] MEDS: CYMBALTA PO SCH (11:01)
[2018-03-08] MEDS: XARELTO PO SCH (11:01)
[2018-03-08] MEDS: VITAMIN D3 PO SCH (11:01)
[2018-03-08] MEDS: HCTZ PO SCH (11:01)
[2018-03-08] MEDS: NORVASC PO SCH (11:01)
[2018-03-08] MEDS: HALFPRIN EC PO SCH (11:02)
[2018-03-08] MEDS: PROTONIX PO SCH (11:02)
[2018-03-08] MEDS: HumuLIN R SUB-Q SCH ×3 (11:04→21:41)
[2018-03-08] MEDS: SODIUM CHLORIDE FLUSH SYRINGE 10 ML IV SCH ×2 (11:08→21:43)
[2018-03-08] MEDS: BUSPAR PO SCH ×3 (11:08→21:39)
--- NOTE | 2018-03-08 11:57 | Progress Note ---
Subjective - Reason for Consult Consult date: 03/08/18 Reason for consult: Psychiatry Follow-up - Chief Complaint Chief complaint: "Nothing has changed" 67 y.o. AA male who presented to the ER for chest pain and generalized weakness. Psychiatry was consulted to see the patient for PTSD. Today the patient is calm and cooperative, but still withdrawn during the assessment. He stated that he still feel suicidal with no explain why. He would not confirm or deny a suicide plan. He denies having any nightmares last night. He denies HI's and AVH's. He denies any side effects of his medications. Mental Status Exam - Vital signs Last Vital Signs Temp 98.4 F 03/08/18 07:19 Pulse 68 03/08/18 07:18 Resp 18 03/08/18 07:18 BP 130/65 03/08/18 07:18 Pulse Ox 93 03/08/18 07:18 - Exam Narrative exam: MSE: Appearance: calm, cooperative Behavior: regular eye contact Speech: regular rate and tone Mood: "depressed." withdrawn Affect: flat Thought Process: circumstantial Thought Content: denies HI's and AVH's Motor Activity: sitting up in bed Cognition: A/O x 3 Insight: vague Judgment: poor Assessment and Plan Impression: Hx of PTSD/Depression. Today the patient is calm and cooperative during the assessment. The patient endorses SI's. Recommendation/Plan: Continue 1013 along with home medications Cymbalta 60 mg PO daily, Depakote 250 mg PO daily, and Buspar 10 mg PO TID. Also, continue Prazosin 1 mg PO HS for PTSD symptoms. Discussed possible suicidality/medication induced yvonne with the patient reference Cymbalta. Monitor the patient for hypotension. Dispo: The patient will be referred to inpatient psy services. Will staff with Dr Woodall.
[2018-03-08] MEDS: AMBIEN PO SCH (21:39)
[2018-03-08] MEDS: MINIPRESS PO SCH (21:40)
[2018-03-09] MEDS: LOPRESSOR PO SCH ×2 (03:54→09:47)
[2018-03-09] MEDS: PERCOCET 5/325 PO PRN ×2 (05:46→13:28)
[2018-03-09] MEDS: SYNTHROID PO SCH (05:46)
[2018-03-09 07:43] VITALS: BP 147/76
[2018-03-09] MEDS: HumuLIN R SUB-Q SCH ×2 (09:44→13:31)
[2018-03-09] MEDS: VITAMIN D3 PO SCH (09:46)
[2018-03-09] MEDS: XARELTO PO SCH (09:46)
[2018-03-09] MEDS: HCTZ PO SCH (09:46)
[2018-03-09] MEDS: CYMBALTA PO SCH (09:46)
[2018-03-09] MEDS: HALFPRIN EC PO SCH (09:46)
[2018-03-09] MEDS: BUSPAR PO SCH (09:46)
[2018-03-09] MEDS: PROTONIX PO SCH (09:47)
[2018-03-09] MEDS: NORVASC PO SCH (09:47)
[2018-03-09] MEDS: SODIUM CHLORIDE FLUSH SYRINGE 10 ML IV SCH (09:48)
--- NOTE | 2018-03-09 13:27 | Discharge Summary ---
Providers - Providers Date of Admission: 03/02/18 19:39 Date of discharge: 03/09/18 Attending physician: CHANTEL BARAHONA 03/02/18 Consult to Cardiac Rehabilitation [CONS] Routine Reason For Exam: Phase I 03/04/18 13:40 Physical Therapy Evaluation and Treat [CONS] Routine Comment: plan subacute placement at d/c Reason For Exam: PT eval/recommend-gait and functional status 03/04/18 14:50 Consult to Mental Health [CONS] Routine Reason For Exam: PTSD Place consult to:: mental health Notified:: danny Phone number called:: [phone] Was contact made?: Yes Time called:: 15:00 Primary care physician: [employer]PERATIONS DIRECTOR Hospitalization Reason for admission: abdominal pain/depression with suicidal ideation Condition: Good Pertinent studies: CT abdomen and pelvis; IVC filter, stent in the left common iliac vein Bilateral renal cysts CTA chest; Cetaphil to stent the left common iliac, Echocardiogram; EF 40-45% CTA abdomen and pelvis; mild atherosclerotic disease in the distal aorta and bilateral common iliac arteries no hemodynamically significant stenosis Exercise stress test; negative for reversible ischemia Hospital course: 67-year-old male patient with multiple medical problems was admitted through emergency room with abdominal pain Patient had extensive workup as mentioned above which was negative Patient Was evaluated by cardiology and underwent stress test which was negative for reversible ischemia Patient also has history of PTSD, follows with psych, Suddenly during the hospital stay patient became very depressed with suicidal thoughts and ideation, 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, on 1012 status Psych evaluation the patient and set up transfer to inpatient psych facility when stable Today,, The patient is comfortable in no new complaints vital signs stable physical examination: Limited history is unremarkable Patient is hemodynamically and clinically stable for discharge to inpatient psych facility and does not need any further acute inpatient care at this time Patient is hemodynamically and clinically stable at discharge Discharge Diagnosis: --Depression; suicidal thoughts and ideation Psych is already on the case, placed on suicide watch 1013 status --Atypical chest pain, due to CAD Cardiology evaluation and recommendations noted ECHO,EF 60%, regional wall motion abnormalities , possible underlying ischemia Stress test negative for reversible ischemia --h/o PTSD/anxiery abd depression -psych following, continue current medications --Abdominal pain, nausea, vomiting. Mild improvement CT abdomen and pelvis negative, tolerating diet cont PPI for possible PUD,GI evaluation is needed --Htn, cont home meds --DM, cont SSI --PE/DVT s/p IVC filter and anticoagulated with Xarelto --PAD s/p iliac stent, cont aspirin/statin Continue 1013 status Transfer to inpt psych facility today Disposition: [id number] H[facility]/PSY UNIT Time spent for discharge: 32 min Core Measure Documentation - Palliative Care Palliative Care/ Comfort Measures: Not Applicable - Core Measures Any of the following diagnoses?: none Exam - Constitutional Vitals: Temp Pulse Resp BP Pulse Ox 97.6 F 59 L 20 147/76 97 03/09/18 07:41 03/09/18 10:00 03/09/18 07:41 03/09/18 07:41 03/09/18 07:41 General appearance: Present: no acute distress, well-nourished - EENT Eyes: Present: PERRL, EOM intact - Neck Neck: Present: supple, normal ROM - Respiratory Respiratory effort: normal Respiratory: negative: rales, rhonchi, wheezing - Cardiovascular Rhythm: regular Heart Sounds: Present: S1 & S2 - Extremities Extremities: no ischemia, No edema - Abdominal General gastrointestinal: Present: soft, non-tender, non-distended, normal bowel sounds - Integumentary Integumentary: Present: clear, warm - Musculoskeletal Musculoskeletal: strength equal bilaterally - Psychiatric Psychiatric: appropriate mood/affect, cooperative - Neurologic Neurologic: CNII-XII intact, moves all extremities Plan Activity: advance as tolerated, other (1013) Diet: other (cardiac diet) Additional Instructions: Pt is being transferred to in patient psych facility for further evaluation and treatment Follow up with: PRIMARY CARE, [Primary Care Provider] - 3-5 Days
== END 2018-03-09 15:00 | DRG 302 ==
LOC: ED 14:28 → 4A 19:39
PROVIDERS: ADMIT Internal Medicine; ATTEND Internal Medicine
PROC: 3E0234Z Introduction of Serum, Toxoid and Vaccine into Muscle, Percutaneous Approach (ICD-10-PCS; principal; 2018-03-03)
DX: I25.10 Atherosclerotic heart disease of native coronary artery without angina pectoris (principal); I50.31 Acute diastolic (congestive) heart failure; E78.2 Mixed hyperlipidemia; R51 Headache; F32.9 Major depressive disorder, single episode, unspecified; R10.13 Epigastric pain; N28.1 Cyst of kidney, acquired; I11.0 Hypertensive heart disease with heart failure; I70.0 Atherosclerosis of aorta; E11.9 Type 2 diabetes mellitus without complications; Z86.73 Personal history of transient ischemic attack (TIA), and cerebral infarction without residual deficits; Z82.49 Family history of ischemic heart disease and other diseases of the circulatory system; Z86.718 Personal history of other venous thrombosis and embolism; Z86.711 Personal history of pulmonary embolism; Z95.820 Peripheral vascular angioplasty status with implants and grafts; Z95.828 Presence of other vascular implants and grafts; Z79.899 Other long term (current) drug therapy; Z79.82 Long term (current) use of aspirin; Z79.84 Long term (current) use of oral hypoglycemic drugs; Z87.891 Personal history of nicotine dependence; Z23 Encounter for immunization
CPT/HCPCS: 36415; 71045; 71275; 74174; 74177; 78452; 80048; 80053; 80061; 80164; 81001; 82150; 82962; 83690; 83880; 84484; 85025; 85379; 90471; 90686; 90732; 93005; 93010; 93017; 93306; 96374; G0378; A9270-GY; A9502; G0008; G0009; J0360; J1815; J2270; J2405; J2785; J3010; J7050; Q9967